=== PATIENT | female | born 2000 | race Caucasian/White ===

== ENCOUNTER 2022-05-07 13:17 | Outpatient (CLI) | payer BC, SELFPAY | END 2022-05-07 13:18 | disposition home or self-care (01) | LOC: AMB 05-09 10:27 | PROVIDERS: PCP Family Medicine; Visit Provider Emergency Medicine | DX: T14.91XA Suicide attempt, initial encounter (principal); S91.012A Laceration without foreign body, left ankle, initial encounter; X78.1XXA Intentional self-harm by knife, initial encounter; Y92.009 Unspecified place in unspecified non-institutional (private) residence as the place of occurrence of the external cause | CPT/HCPCS: A0425; A0427 ==

== ENCOUNTER 2022-05-07 13:55 | Emergency (ER) | payer BC, SELFPAY ==
[2022-05-07] VITALS (17 sets, daily range): BP systolic 111–153; BP diastolic 67–92; PULSE 81–100; RESP 18; TEMP 36.8; O2SAT 96–100
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
[2022-05-07 14:24] LABS: Basophils Absolute Auto 0.04 K/uL (0.00-0.30); Basophils Percent Auto 0.5 % (0.0-3.0); Eosinophils Absolute Auto 0.31 K/uL (0.00-0.50); Eosinophils Percent Auto 3.7 % (0.0-7.0); Hematocrit 40.2 % (33.0-51.0); Hemoglobin* 13.6 gm/dL (12.0-16.0); Mean Corpuscular HGB Conc 34 gm/dL (32-36); Mean Corpuscular Hemoglobin 29 pg (26-34); Mean Corpuscular Volume 85 fL (80-100); Monocytes Percent Auto 12.6 % (0.0-11.0); Neutrophils Absolute Auto 4.92 K/uL (1.7-7.0); Neutrophils Percent Auto 59.2 % (42.0-72.0); Platelet Count* 425 K/uL (140-440); RDW Coefficient of Variation % 13.4 % (11.5-15.5); Red Blood Count 4.72 m/uL (4.00-5.20); White Blood Count* 8.32 K/uL (4.50-11.00)
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
[2022-05-07 14:26] LABS: Slide Review Reflex No
[2022-05-07 14:48] LABS: Albumin* 4.8 g/dL (3.3-5.0)
[2022-05-07 14:49] LABS: Chloride* 110 mmol/L (96-114); Potassium* 3.9 mmol/L (3.6-5.1); Sodium* 141 mmol/L (135-149)
[2022-05-07 14:51] LABS: Alkaline Phosphatase* 110 U/L (40-150); Aspartate Amino Transferase* 33 U/L (12-35); Bilirubin Direct* 0.3 mg/dL (0.0-0.5); Bilirubin Total* 0.8 mg/dL (0.1-1.5); Total Protein* 8.8 g/dL (6.0-8.3)
[2022-05-07 14:52] LABS: Alanine Aminotransferase* 22 U/L (4-35)
[2022-05-07 14:52] LABS: Carbon Dioxide* 16 mmol/L (20-32); Creatinine* 0.8 mg/dL (0.5-1.5); Estimated Glomerular Filt Rate 108 ml/min
[2022-05-07 14:53] LABS: Blood Urea Nitrogen* 15 mg/dL (5-24); Calcium* 9.7 mg/dL (8.4-10.6); Glucose* 107 mg/dL (60-115)
[2022-05-07 14:54] LABS: Ethanol* < 0.01 % (0.01-0.03); Salicylate* < 1.0 mg/dL (1.0-10)
[2022-05-07 14:54] LABS: Acetaminophen* < 10.0 ug/mL (10.0-30.0)
[2022-05-07 15:00] LABS: PCR FLU A Negative PCR FLU A (Negative); PCR FLU B Negative PCR FLU B (Negative); PCR RSV Negative PCR RSV (Negative)
[2022-05-07 15:04] LABS: SARS PCR* Negative SARS-CoV-2 (Negative)
--- NOTE | 2022-05-07 15:10 | ED.NURSE ---
Pt reporting extreme anxiety, is crying, yelling, and shaking. Pt requesting meds to help her calm down. notified.
[2022-05-07 15:25] LABS: Appearance Urine Cloudy (Clear); Bilirubin Urine 1+ (Negative); Blood Urine 3+ (Negative); Color Urine Yellow (Yellow); Glucose Urine Negative (Negative); Ketones Urine 1+ (Negative); Leukocyte Esterase Urine Negative (Negative); Nitrite Urine Negative (Negative); Protein Urine 2+ (Negative); Specific Gravity Urine >= 1.030 (1.000-1.030); Urobilinogen Urine 0.2 (0.2-1.0)
[2022-05-07] MEDS: LORazepam 1 MG TABLET PO (15:29)
[2022-05-07 15:32] LABS: Barbiturate Screen Urine Negative (Negative); Cocaine Screen Urine Negative (Negative); Methadone Screen Urine Negative (Negative); Methamphetamines Screen Urine Negative (Negative); Opiate Screen Urine Negative (Negative); Oxycodone Screen Urine Negative (Negative); Phencyclidine Screen Urine Negative (Negative); Tricyclic Antidepressant Urine Negative (Negative)
[2022-05-07 15:38] LABS: Thyroid Stimulating Hormone* 0.927 uIU/mL (0.270-4.20)
[2022-05-07 15:47] LABS: Amphetamine Screen Urine POSITIVE (Negative); Benzodiazepines Screen Urine POSITIVE (Negative); Cannabinoid Screen Urine POSITIVE (Negative)
--- NOTE | 2022-05-07 16:05 | ED.NURSE ---
Bacitracin applied to wound on pt's L anterior thigh. Wound bandaged with telfa, gauze, and kerlix roll.
[2022-05-07 16:06] LABS: Bacteria Urine Few; Squamous Epithelial Cell Urine Many (None-Few)
--- NOTE | 2022-05-07 17:15 | ED.NURSE ---
DEC assessment completed, pt finished eating a meal tray as well.
--- NOTE | 2022-05-07 18:38 | ED.NURSE ---
DEC safety plan reviewed by pt and pt's mother. Both agreeable to safety plan. Copy of safety plan provided to pt and pt's mother.
== END 2022-05-07 19:30 | disposition home or self-care (01) ==
PROVIDERS: Emergency Provider Family Medicine; PCP Family Medicine
DX: S71.112A Laceration without foreign body, left thigh, initial encounter (principal); X78.9XXA Intentional self-harm by unspecified sharp object, initial encounter; F41.9 Anxiety disorder, unspecified; F32.A Depression, unspecified
CPT/HCPCS: 12002; 36415; 80048; 80076; 80143; 80179; 80306; 81001; 82077; 84443; 85025; 87086; 87502; 87634; 87635; 94761; 99284; 99285; 99291; A9270; G0390

== ENCOUNTER 2022-12-09 11:55 | Outpatient (CLI) | payer BC, SELFPAY | END 2022-12-09 11:56 | disposition home or self-care (01) | LOC: NFLDREF 12-11 10:30 | PROVIDERS: PCP Family Medicine; Referring Provider Family Medicine; Visit Provider Physician Assistant | DX: Z11.3 Encounter for screening for infections with a predominantly sexual mode of transmission (principal) | CPT/HCPCS: 86592; 86703; 86803; 87340; 87491; 87591 ==

== ENCOUNTER 2023-02-14 10:38 | Emergency (ER) | payer BC, SELFPAY ==
[2023-02-14 11:03] VITALS: BP 121/74; PULSE 62; RESP 16; TEMP 36.6; O2SAT 99; BMI 23.8
[2023-02-14 11:22] LABS: Appearance Urine Clear (Clear); Bilirubin Urine Negative (Negative); Blood Urine 3+ (Negative); Color Urine Yellow (Yellow); Glucose Urine Negative (Negative); Ketones Urine Negative (Negative); Leukocyte Esterase Urine 1+ (Negative); Nitrite Urine Negative (Negative); Protein Urine 2+ (Negative); Specific Gravity Urine 1.015 (1.000-1.030); Urobilinogen Urine 0.2 (0.2-1.0)
[2023-02-14 11:37] LABS: Amorphous Sediment Urine Few; Bacteria Urine Moderate; RBC Urine 50-100 (0-2); Squamous Epithelial Cell Urine Few (None-Few)
[2023-02-14 11:38] LABS: WBC Clumps Urine Few
--- NOTE | 2023-02-14 11:41 | CRLHL7_ITS ---
For Patients: As a result of the Cures Act, medical imaging exams and procedure reports are released immediately into your electronic medical record. You may view this report before your referring provider. If you have questions, please contact your health care provider. INDICATION: Bilateral flank pain. UTI. Right lower quadrant pain. TECHNIQUE: CT abdomen and pelvis acquired with 64 mL Isovue 370 IV contrast. COMPARISON: CT abdomen/pelvis dated 05/19/2021. FINDINGS: Lower chest: No focal consolidation. Liver: No suspicious focal hepatic lesion. Gallbladder and bile ducts: Unremarkable. Pancreas: Unremarkable. Spleen: Unremarkable. Adrenal glands: Unremarkable. Kidneys: Kidneys enhance symmetrically, without hydronephrosis. There is mild periureteral inflammation along the proximal to mid right ureter. Retroperitoneum: No lymphadenopathy. Bowel and mesentery: Bowel is not obstructed. No significant ascites. No pneumoperitoneum. Normal appendix. Bladder: Mild pericystic inflammation. Reproductive organs: Corpus luteum cyst is noted within the right ovary. Pelvic lymph nodes: No lymphadenopathy. Vessels: Unremarkable. Abdominal wall: No acute abdominal wall abnormality. Bones: No suspicious/aggressive focal osseous lesion. IMPRESSION: 1. Mild pericystic inflammation, consistent with cystitis. 2. Mild right periureteral inflammation along the proximal to mid right ureter, concerning for ascending urinary tract infection. 3. Normal appendix. Please note that all CT scans at this facility use dose modulation, iterative reconstruction, and/or weight-based dosing when appropriate to reduce radiation dose to as low as reasonably achievable. Dictated by Rupa Matt MD @ 02/14/2023 2:58:22 PM (Electronically Signed)
[2023-02-14 11:57] LABS: Ur HCG Qualitative* Negative (Negative)
--- NOTE | 2023-02-14 11:59 | ED_ITS ---
HPI - General Adult General Date Seen: 02/14/23 Chief complaint: Abdominal Pain Stated complaint: back/abominal pain Time Seen by Provider: 02/14/23 10:51 Source: patient Mode of arrival: ambulatory Limitations: no limitations History of Present Illness HPI narrative: Patient is a 22-year-old female presenting to the emergency department for bilateral flank pain, lower abdominal pain and dysuria. She states symptoms started roughly 04:00 this morning. She states started in bilateral flanks and has since gone down to her bilateral lower abdomen with the right worse than left. She states she does not do any heavy lifting at work and cannot think of any heavy lifting or injuries to her back. Denies having symptoms like this before. Does not she was diagnosed with chlamydia a little over a month ago and has taken an antibiotic for it. She was asymptomatic at the time was tested because someone else tested positive. She did not have any dysuria associated with it. Denies fevers, chills, chest pain, shortness of breath, headache, vision changes, weakness, numbness, diarrhea, constipation. No other concerns at this time Related Data Home Medications Medication Instructions Recorded Confirmed epinephrine 0.3 mg/0.3 mL 0.3 ml IM ONCE PRN 03/15/22 01/28/23 injection, auto-injector fluoxetine 20 mg capsule 20 mg PO DAILY 03/15/22 02/14/23 trazodone 50 mg tablet 50 mg PO .Bedtime 03/15/22 02/14/23 aripiprazole 2 mg tablet (Abilify) 2 mg PO QHS 05/14/22 02/14/23 Previous Rx's Medication Instructions Recorded norgestimate-ethinyl estradiol See Rx Instructions .Route 04/21/22 0.18 mg/0.215mg/0.25mg-35 .COMPLEX #84 tabs mcg(28)tablet (Tri-Sprintec (28)) lorazepam 1 mg tablet 1 mg PO QHS PRN anxiety #30 tabs 01/14/23 azithromycin 250 mg tablet See Rx Instructions PO .COMPLEX #6 01/28/23 (Zithromax Z-Ehsan) tabs ciprofloxacin HCl 500 mg tablet 500 mg PO BID #14 tabs 02/14/23 (Cipro) ketorolac 10 mg tablet 10 mg PO TID 5 days #15 tabs 02/14/23 ondansetron 4 mg disintegrating 4 mg PO Q6H #20 tabs 02/14/23 tablet oxycodone 5 mg tablet 5 mg PO Q6H PRN pain #6 tabs 02/14/23 Allergies Allergy/AdvReac Type Severity Reaction Status Date / Time umberto Allergy Severe Anaphylaxis Verified 01/28/23 18:12 montelukast Allergy Unknown Verified 01/28/23 18:12 Penicillins Allergy Unknown Verified 01/28/23 18:12 chili powder Allergy Severe Anaphylaxis Uncoded 01/28/23 18:12 Guinea pig epithelium Allergy Intermediate watery Uncoded 01/28/23 18:12 eyes, rash Cat hair extract Allergy Unknown Uncoded 01/28/23 18:12 Review of Systems Status of ROS: Reports: 10 or more systems reviewed and unremarkable except as noted in History and below [facility] Surgical History History of foot surgery ?Z98.890 - Other specified postprocedural states (ICD-10) History of thymectomy ?Z90.89 - Acquired absence of other organs (ICD-10) Family History Father Depression Sister Depression Social History Narrative: Works at [employer] in [place]. has zoroastrianism belief- very strong spirituality for Nondenominational in family. attends [employer] [facility] [employer] Smoking Status: Current every day smoker Do you use any of these nicotine containing products: Vaping Products Second hand tobacco smoke exposure: No How often do you have a drink containing alcohol: never AUDIT-C Alcohol total score: 0 Non-prescribed substance use: marijuana (any form), amphetamines/methamphetamines and other Non-prescribed substance use details: Mushrooms and Acid Exam Narrative: Exam Narrative: Const: Well-nourished, Well-developed, in mild distress Eyes: PERRL, no conjunctival injection, and symmetrical lids HENT: Atraumatic external nose and ears. Moist mucous membranes. Neck: Symmetric, trachea midline, No thyromegaly. CVS: RRR, No murmurs or gallops. Peripheral pulses 2+ and equal in all extremities RESP: Unlabored respiratory effort. Clear to auscultation bilaterally. GI: Diffuse lower abdominal tenderness, Nondistended, No rebound or guarding. MSK:Extremities w/o deformity, Normal Active ROM, bilateral paraspinal tenderness to palpation Skin: Warm, Dry. No rashes or lesions. Neuro: Normal Muscle tone, No focal neurological deficits. Psych: Awake, Alert, & Oriented x3. Appropriate mood and affect. Const: Vital Signs, click to edit/add: Vital Signs - 24 hr 02/14/23 11:03 Temperature 97.8 F Pulse Rate [Pulse Oximeter] 62 Respiratory Rate 16 [facility] 121/74 Pulse Oximetry 99 Oxygen Delivery Me thod Room Air Course Vital Signs Vital signs: Initial Vital Signs Temperature 97.8 F 02/14/23 11:03 Temperature Source Temporal Artery Scan 02/14/23 11:03 Pulse Rate 62 02/14/23 11:03 Respiratory Rate 16 02/14/23 11:03 Blood Pressure 121/74 02/14/23 11:03 Blood Pressure Mean 89 02/14/23 11:03 Blood Pressure Position Sitting 02/14/23 11:03 Pulse Oximetry 99 02/14/23 11:03 Oxygen Delivery Method Room Air 02/14/23 11:03 Vital Signs Temperature 97.8 F 02/14/23 11:03 Pulse Rate 62 02/14/23 11:03 Respiratory Rate 16 02/14/23 11:03 Blood Pressure 121/74 02/14/23 11:03 Pulse Oximetry 99 02/14/23 11:03 Oxygen Delivery Method Room Air 02/14/23 11:03 Temperature 97.8 F 02/14/23 11:03 Pulse Rate 62 02/14/23 11:03 Respiratory Rate 16 02/14/23 11:03 Blood Pressure 121/74 02/14/23 11:03 Pulse Oximetry 99 02/14/23 11:03 Oxygen Delivery Method Room Air 02/14/23 11:03 Medical Decision Making MDM Narrative Medical decision making narrative: Patient is a 22-year-old female presenting emergency department for multiple complaints. Start off with flank pain and dysuria and is not having lower abdominal pain. This could all be related to urinary tract infection. She has no history of nephrolithiasis but there is concern for kidney stones although this seems unlikely since it is bilateral. That she is also having bilateral lower abdominal pain and is painful McBurney's point mood do CT scan with IV contrast. This will help check for stones in appendicitis or any other acute abnormality. Urinalysis, CBC and CMP were also ordered. Toradol was given for pain. Patient is feeling much better after the Toradol. Cbc and CMP shows no concerning abnormalities. Urinalysis does show urinary tract infection. CT scan was done. It returned showing concerns of an ascending urinary tract infection with inflammation seen in the right ureters. Was she is not have pyelonephritis at this time we will treat as pyelonephritis since that is ascending. She will be started on ciprofloxacin 500 mg b.i.d. for 7 days. She will be given Toradol for pain. As backup will give her a few pills of oxycodone. She is agreeable to this plan. Lab Data Labs: Lab Results 02/14/23 02/14/23 02/14/23 Range/Units 11:18 11:42 12:00 WBC 11.85 H (4.50-11.00) K/uL RBC 4.47 (4.00-5.20) m/uL Hgb 12.6 (12.0-16.0) gm/dL Hct 39.1 (33.0-51.0) % MCV 88 (80-100) fL MCH 28 (26-34) pg MCHC 32 (32-36) gm/dL RDW Coeff of Zackary 13.7 (11.5-15.5) % Plt Count 444 H (140-440) K/uL Neut % (Auto) 76.9 H (42.0-72.0) % Lymph % (Auto) 13.5 L (20-44) % [place] % (Auto) 7.8 (0.0-11.0) % Eos % (Auto) 1.4 (0.0-7.0) % Baso % (Auto) 0.3 (0.0-3.0) % Neut # (Auto) 9.10 H (1.7-7.0) K/uL Lymph # (Auto) 1.60 (0.90-2.90) K/uL [place] # (Auto) 0.90 (0.00-0.90) K/UL Eos # (Auto) 0.20 (0.00-0.50) K/uL Baso # (Auto) 0.00 (0.00-0.30) K/uL Abs Immat Gran (auto) 0.00 (0.00-0.30) K/uL Imm/Tot Granulo (auto) 0.1 % Sodium 136 (135-149) mmol/L Potassium 3.9 (3.6-5.1) mmol/L Chloride 97 (96-114) mmol/L Carbon Dioxide 25 (20-32) mmol/L Anion Gap 14 (7-15) mEq/L BUN 9 (5-24) mg/dL Creatinine 0.6 (0.5-1.5) mg/dL Estimated Creat Clear 118.29 Estimated GFR 132 ml/min Glucose 108 (60-115) mg/dL Calcium 9.2 (8.4-10.6) mg/dL Total Bilirubin 0.6 (0.1-1.5) mg/dL AST 35 (12-35) U/L ALT 18 (4-35) U/L Alkaline Phosphatase 104 (40-150) U/L Total Protein 8.3 (6.0-8.3) g/dL Albumin 4.6 (3.3-5.0) g/dL HCG, Quant Cancelled Urine Color Yellow (Yellow) Urine Appearance Clear (Clear) Urine pH 8.0 (5.0-8.5) Ur Specific [place] 1.015 (1.000-1.030) Urine Protein 2+ A (Negative) Urine Glucose (UA) Negative (Negative) Urine Ketones Negative (Negative) Urine Blood 3+ A (Negative) Urine Nitrite Negative (Negative) Urine Bilirubin Negative (Negative) Urine Urobilinogen 0.2 (0.2-1.0) Ur Leukocyte Esterase 1+ A (Negative) Urine RBC 50-100 A (0-2) Urine WBC 10-25 A (0-5) Urine WBC Clumps Few A (None) Ur Squamous Epith Cells Few (None-Few) Amorphous Sediment Few A (None) Urine Bacteria Moderate A (None) Urine HCG, Qual Negative (Negative) Lab Acknowledgement Test Added Imaging Data CT scan abdomen and pelvis: Radiologist's impression: IMPRESSION: 1. Mild pericystic inflammation, consistent with cystitis. 2. Mild right periureteral inflammation along the proximal to mid right ureter, concerning for ascending urinary tract infection. 3. Normal appendix. Please note that all CT scans at this facility use dose modulation, iterative reconstruction, and/or weight-based dosing when appropriate to reduce radiation dose to as low as reasonably achievable. Dictated by Rupa Matt MD @ 02/14/2023 2:58:22 PM Discharge Plan Discharge Clinical Impression: Ureteritis, Cystitis Patient Disposition: Home, Self-Care Condition: Improved Instructions: Urinary Tract Infection in Women (DC) Additional Instructions: If symptoms are not improving in the next 3-4 days follow-up with your primary care provider. Patient says the pain becomes intolerable or she is unable to keep down any medications return to the emergency department for possible admission. She is not currently have infection of her kidneys but it is moving up her urinary tract. If she is using the Toradol did not take Advil or ibuprofen with that. Use the oxycodone as a last resort. Prescriptions: New ciprofloxacin HCl [Cipro] 500 mg tablet 500 mg PO BID Qty: 14 0RF ketorolac 10 mg tablet 10 mg PO TID 5 Days Qty: 15 0RF oxycodone 5 mg tablet 5 mg PO Q6H PRN (Reason: pain) Qty: 6 0RF ondansetron 4 mg tablet,disintegrating 4 mg PO Q6H Qty: 20 0RF No Action fluoxetine 20 mg capsule 20 mg PO DAILY trazodone 50 mg tablet 50 mg PO .Bedtime epinephrine 0.3 mg/0.3 mL auto-injector 0.3 ml IM ONCE PRN aripiprazole [Abilify] 2 mg tablet 2 mg PO QHS azithromycin [Zithromax Z-Ehsan] 250 mg tablet See Rx Instructions PO .COMPLEX Qty: 6 0RF Rx Instructions: For 250 mg dose pack: take 500 mg today (day 1), then 250 mg for 4 days (days 2-5) PO norgestimate-ethinyl estradiol [Tri-Sprintec (28)] 0.18/0.215/0.25 mg-35 mcg (28) tablet See Rx Instructions .ROUTE .COMPLEX Qty: 84 3RF Dose Instruction: Take 1 tablet by mouth once daily Rx Instructions: Take 1 tablet by mouth once daily lorazepam 1 mg tablet 1 mg PO QHS PRN (Reason: anxiety) Qty: 30 2RF Follow Up/Referrals: Brock Royal MD [Primary Care Provider] - Stand Alone Forms: [employer] Info Instructions
[2023-02-14] MEDS: KETOROLAC 15 MG/ML inj IVP (12:07)
[2023-02-14 12:13] LABS: Basophils Percent Auto 0.3 % (0.0-3.0); Eosinophils Percent Auto 1.4 % (0.0-7.0); Hematocrit 39.1 % (33.0-51.0); Hemoglobin* 12.6 gm/dL (12.0-16.0); Immature Granulocytes Pct Auto 0.1 %; Lymphocytes Percent Auto 13.5 % (20-44); Mean Corpuscular HGB Conc 32 gm/dL (32-36); Mean Corpuscular Hemoglobin 28 pg (26-34); Mean Corpuscular Volume 88 fL (80-100); Monocytes Percent Auto 7.8 % (0.0-11.0); Neutrophils Percent Auto 76.9 % (42.0-72.0); Platelet Count* 444 K/uL (140-440); RDW Coefficient of Variation % 13.7 % (11.5-15.5); Red Blood Count 4.47 m/uL (4.00-5.20); White Blood Count* 11.85 K/uL (4.50-11.00)
[2023-02-14 12:19] LABS: Slide Review Reflex No
[2023-02-14 12:23] LABS: Albumin* 4.6 g/dL (3.3-5.0); Chloride* 97 mmol/L (96-114); Potassium* 3.9 mmol/L (3.6-5.1); Sodium* 136 mmol/L (135-149)
[2023-02-14 12:26] LABS: Alanine Aminotransferase* 18 U/L (4-35); Alkaline Phosphatase* 104 U/L (40-150); Anion Gap 14 mEq/L (7-15); Aspartate Amino Transferase* 35 U/L (12-35); Bilirubin Total* 0.6 mg/dL (0.1-1.5); Blood Urea Nitrogen* 9 mg/dL (5-24); Carbon Dioxide* 25 mmol/L (20-32); Creatinine* 0.6 mg/dL (0.5-1.5); Est. Creatinine Clearance* 118.29; Estimated Glomerular Filt Rate 132 ml/min; Glucose* 108 mg/dL (60-115); Total Protein* 8.3 g/dL (6.0-8.3)
[2023-02-14 12:27] LABS: Calcium* 9.2 mg/dL (8.4-10.6)
[2023-02-14 15:20] VITALS: BP 102/73; PULSE 75; RESP 16; O2SAT 98
--- NOTE | 2023-02-14 18:16 | ED.NURSE ---
Pt mom called in after discharge stating that the pharmacy did not have their Tramadol rx. Steel Shot Header Operator confirmed if they were asking about the Toradal rx. Pt's mother stated yes. Steel Shot Header Operator called the pharmacy to confirm, they did not receive the rx. Spoke with pharmacist and got rx called in. Called pt's mom back to notify that it had been resolved. No further questions or concerns at this time.
== END 2023-02-14 15:28 | disposition home or self-care (01) ==
PROVIDERS: Emergency Provider Student in an Organized Health Care Education/Training Program; PCP Family Medicine
DX: N30.00 Acute cystitis without hematuria (principal); N28.89 Other specified disorders of kidney and ureter
CPT/HCPCS: 36415; 74177; 80053; 81001; 81025; 84702; 85025; 87086; 87186; 96374; 99283; 99284; J1885; Q9967

== ENCOUNTER 2023-05-14 16:16 | Outpatient (CLI) | payer BC, SELFPAY ==
[2023-05-15 00:05] LABS: Chlamydia DNA Amplified* Not Detected (No Detected); GC DNA Amplified* Not Detected (No Detected)
== END 2023-05-14 16:17 | disposition home or self-care (01) ==
LOC: NFLDUCREF 16:17
PROVIDERS: PCP Family Medicine; Visit Provider Nurse Practitioner Family
DX: R10.2 Pelvic and perineal pain (principal); R30.0 Dysuria
CPT/HCPCS: 87491; 87591

== ENCOUNTER 2023-08-28 14:53 | Outpatient (CLI) | payer BC, SELFPAY | END 2023-08-28 14:54 | disposition home or self-care (01) | LOC: NFLDREF 08-29 06:06 | PROVIDERS: PCP Family Medicine; Referring Provider Family Medicine; Visit Provider Nurse Practitioner Family | DX: R30.0 Dysuria (principal); N89.8 Other specified noninflammatory disorders of vagina; R21 Rash and other nonspecific skin eruption; B37.31 Acute candidiasis of vulva and vagina | CPT/HCPCS: 87086 ==

== ENCOUNTER 2024-03-25 13:51 | Outpatient (CLI) | payer BC, SELFPAY | END 2024-03-25 13:52 | disposition home or self-care (01) | PROVIDERS: PCP Nurse Practitioner Family; Visit Provider Nurse Practitioner Family | DX: R53.83 Other fatigue (principal); Z13.220 Encounter for screening for lipoid disorders | CPT/HCPCS: 80053; 80061; 84443 ==

== ENCOUNTER 2024-12-09 19:35 | Emergency (ER) | payer BC, SELFPAY ==
[2024-12-09 19:48] VITALS: BP 177/74; PULSE 80; RESP 16; TEMP 36.6; O2SAT 97; BMI 32.3
--- NOTE | 2024-12-09 20:58 | ED_ITS ---
HPI - General Adult General Date Seen: 12/09/24 Chief complaint: Extremity Pain/Injury, Lower Stated complaint: R hip severe pain, urgent care sent her. Time Seen by Provider: 12/09/24 20:58 History of Present Illness HPI narrative: 24-year-old female presenting to the ER [facility] with her mother for evaluation of pain involving her right hip. She has been having pain for about a week. She says she 1st noticed it when after she woke up from a nap about a week ago. She had her leg was in a funny position after the nap with her hip abducted and externally rotated. She thought she might have dislocated her hip and her sleep. No known injury. Unclear why she thought it was dislocated. She did not feel it obviously at a plays and never felt a clunk of the hip relocating. Ever since then she has been having pain. Pain is located deep in the hip and s ometimes in the buttock and occasionally on the lateral side of the hip. She also notes that sometimes she gets some pain radiating down her thigh all the way down to her right lateral malleolus. She is not having any back pain. No numbness or weakness in her leg. No left leg symptoms. Normal bladder and bowel function. No fever. No fall or injury. She has no history of hip surgery or other hip problems. She had her mother are frustrated because she went to the urgent care today and they felt like she was dismissed and ?pad on the head. ?. She says that they told him to follow up physical therapy. She has already been seeing her chiropractor and taking ibuprofen and Tylenol but it is helping. She is having lot of pain when she tries to move her hip and walk. I Related Data Home Medications ?Medication ?Instructions ?Recorded ?Confirmed propranolol 20 mg tablet 20 mg PO BID 05/30/23 bupropion HCl 200 mg tablet,12 hr 200 mg PO QAM 12/09/24 sustained-release gabapentin 800 mg tablet 800 mg PO QPM 07/22/2412/09 aripiprazole 30 mg tablet 30 mg PO QPM 07/28/24 ketoconazole 2 % topical cream applic topical BID 07/1312/09/24 topiramate 50 mg tablet 50 mg PO QPM 12/09/24 Previous Rx's ?Medication ?Instructions ?Recorded albuterol sulfate 90 mcg/actuation 2 puff inhalation Q 4-6H PRN 10/14/23 aerosol inhaler shortness of breath or wheez ing #8.5 grams norgestimate-ethinyl estradiol See Rx Instructions .[place] 03/31/24 0.18mg/0.215mg/0.25mg-0.035mg(28)tablet .COMPLEX #84 t abs (Tri-Sprintec (28)) prednisone 20 mg tablet 20 mg PO BID #10 tabs Allergies Allergy/AdvReac Type Severity Reaction Status Date / Time umberto Allergy Severe Anaphylaxis Verified 12/09/24 09:29 montelukast Allergy Unknown Verified 12/09/24 09:29 Penicillins Allergy Unknown Verified 12/09/24 09:29 cat dander Allergy Verified 12/09/24 09:29 chili powder Allergy Severe Anaphylaxis Uncoded 12/09/24 09:29 Guinea pig epithelium Allergy Intermediate watery Uncoded 12/09/24 09:29 eyes, rash PFSH PFSH Medical History Borderline personality disorder ?F60.3 - Borderline personality disorder (ICD-10) Surgical History History of foot surgery ?Z98.890 - Other specified postprocedural states (ICD-10) History of thymectomy ?Z90.89 - Acquired absence of other organs (ICD-10) Family History Father Depression Sister Depression Social History Narrative: Works at [employer] in [place]. has shinto belief- very strong spirituality for Taoist in family. attends [employer] What is your current living situation?: I presently have a place to live Problems where you live: no known problems In the past 12 months, utilities in danger of being shut off: no In past 12 months, lack of transportation kept you from medical appts, meetings, work, or getting things needed for daily living: no In the past 12 mos, have been you worried that your food would run out before you had money to buy more?: never true In the past 12 mos, the food you bought just didn't last and you didn't have money to buy more?: never true Smoking Status: Current every day smoker Do you use any of these nicotine containing products: Vaping Products Second hand tobacco smoke exposure: No How often do you have a drink containing alcohol: never AUDIT-C Alcohol total score: 0 Non-prescribed substance use: marijuana (any form), amphetamines/methamphetamines and other Non-prescribed substance use details: Mushrooms and Acid How often does anyone, including family, friends and others, physically hurt you : rarely How often does anyone, including family, friends and others, insult or talk down to you: frequently How often does anyone, including family, friends and others, threaten you with harm: rarely How often does anyone, including family, friends and others, scream or curse at you: frequently Health Related Social Needs: Other personal risk factors, not elsewhere classified (Z91.89) Exam Narrative: Exam Narrative: Constitutional: Appears well-developed and well-nourished. Alert. Conversant. Non toxic. HENT: Head: Atraumatic. Nose: Nose normal. Mouth/Throat: Oral mucosa is clear and moist. no trismus. Eyes: Conjunctivae normal. EOM normal. Pupils equal, round, and reactive to light. No scleral icterus. Neck: Normal range of motion. Neck supple. No tracheal deviation present. Cardiovascular: Normal rate, regular rhythm. No gallop. No friction rub. No murmur heard. Symmetric radial artery pulses Pulmonary/Chest: Effort normal. No stridor. No respiratory distress. No wheezes. No rales. No rhonchi . No tenderness. Abdominal: Soft.No distension. No mass. No tenderness. No rebound. No guarding. Musculoskeletal: No L-spine tenderness. Pelvis is stable. She is mildly tender over the right SI joint and right buttock. No bruising. No rash. RUE: Normal range of motion. No tenderness. No deformity LUE: Normal range of motion. No tenderness. No deformity RLE: Range of motion is limited to about 90? of flexion at the hip. She has pain with hip abduction and internal/external rotation. There is no warmth or bruising or redness around the hip. No crepitus. No rotational deformity. No foreshortening. Quadriceps, hamstring, lateral femur are nontender. Normal knee. Normal tibia/fibula. Normal calf. Normal Achilles. Normal ankle and foot. LLE: Normal range of motion. No edema. No tenderness. No deformity Lymph: No inguinal adenopathy. Neurological: Alert and oriented to person, place, and time. Normal strength. CN II-VII intact. No sensory deficit. GCS eye subscore is 4. GCS verbal subscore is 5. GCS motor subscore is 6. Normal coordination Sensory: Normal light touch sensation bilaterally on the anteromedial thigh (L3), medial malleolus (L4), dorsal first web space (L5), lateral malleolus (S1). Strength: 5/5 strength hip flexors (L3) on the rig ht and left 5/5 strength in the quadriceps (L4) on t he right and left 5/5 strength in the tibialis anterior 5/5 strength in the EHL (L5) on the righ t and left 5/5 strength in the gastrocnemius (S1) o n the right and left 5/5 strength in the hamstring on the rig ht and left DTRs: symmetric in the patella (2/4) and in the achilles tendons. Negative straight leg raise bilaterally. Skin: Skin is warm and dry. No rash noted. No pallor. Normal capillary refill. Psychiatric: Normal mood. Initially tearful and anxious. After history and physical in discussion she is calmer. Polite. Const: Vital Signs, click to edit/add: Vital Signs - 24 hr 12/09/24 19:48 Temperature 97.9 F Pulse Rate [Pulse Oximeter] 80 Respiratory Rate 16 Blood Pressure [Ri ght Upper Arm] 177/74 H Pulse Oximetry 97 Oxygen Delivery Me thod Room Air Course Vital Signs Vital signs: Initial Vital Signs Temperature 97.9 F 12/09/24 19:48 Temperature Source Temporal Artery Scan 12/09/24 19:48 Pulse Rate 80 12/09/24 19:48 Respiratory Rate 16 12/09/24 19:48 Blood Pressure 177/74 H 12/09/24 19:48 Blood Pressure Mean 108 H 12/09/24 19:48 Blood Pressure Position Sitting 12/09/24 19:48 Pulse Oximetry 97 12/09/24 19:48 Oxygen Delivery Method Room Air 12/09/24 19:48 Vital Signs Temperature 97.9 F 12/09/24 19:48 Pulse Rate 80 12/09/24 19:48 Respiratory Rate 16 12/09/24 19:48 Blood Pressure 177/74 H 12/09/24 19:48 Pulse Oximetry 97 12/09/24 19:48 Oxygen Delivery Method Room Air 12/09/24 19:48 Temperature 97.9 F 12/09/24 19:48 Pulse Rate 80 12/09/24 19:48 Respiratory Rate 16 12/09/24 19:48 Blood Pressure 177/74 H 12/09/24 19:48 Pulse Oximetry 97 12/09/24 19:48 Oxygen Delivery Method Room Air 12/09/24 19:48 Medications Administered Medications: Generic Name Dose Route Start Last Admin Trade Name Freq PRN Reason Stop Dose Admin Hydrocodone Bitart/Acetaminophen 1 tab 12/09/24 21:21 12/09/24 21:37 Hydrocodone-Acetamin 5-325 Mg 1 Tab PO 12/09/24 21:22 1 tab ONCE ONE Administration Medical Decision Making MDM Narrative Medical decision making narrative: 24-year-old female presenting to the ER [facility] with her mother for evaluation of pain involving her right hip (mostly) but also sometimes pain radiating down her right leg all the way down to her right lateral malleolus. She has no trauma but does recall this started about a week ago when she has woke up from a nap with her right hip in a funny position with the hip abducted and externally rotated. She initially thought she might have dislocated her better sleep, but based on clinical history I think that is unlikely. We did obtain x-rays of her hip there is no evidence for any fracture, dislocation of the femur, acetabulum, or bony pelvis. She has no recent fall. Discussed with the patient and mother the differential also includes soft tissue injury such as muscle sprain or strain, labral tear, bursitis, cartilaginous injury around the hip, ligamentous injury. Also consider possible sciatica with the pain that sometimes radiates down to her ankle. She is not having any symptoms of leg weakness or numbness. She has no focal neurologic deficit on exam. At this point I do not think she needs transfer to a different hospital for emergent MRI of her L-spine. Would recommend close outpatient follow-up with PCP or with Orthopedics for re- evaluation. She has been taking [id number] medications for her hip but finds them to be effective. I agreed to give her a short prescription for [place]. Discussed opiate precautions in detail with the patient and her mother. Precautions for return to the ER reviewed. Prescription for [place] through [facility]-12 tablets. Imaging Data XR R hip and pelvis: Attestation: I have reviewed the pertinent imaging results. My impression: no fracture Radiologist's impression: IMPRESSION: 1. No acute osseous injuries or abnormalities are noted. Discharge Plan Discharge Clinical Impression: Acute pain of right hip Patient Disposition: Home, Self-Care Condition: Stable Instructions: Hip Pain (ED) Additional Instructions: As we discussed, please come back to the ER right away if you have worsening or severe pain, numbness we consider leg, fever, trouble with bladder function or bowel function, or if you have any other concerns. Please follow-up with your regular doctor or with the [facility] within 1-3 days. To make an appointment with the orthopedic clinic you can call [phone]. Use caution with prescription pain medications because they can cause dizziness, drowsiness, slow reflexes, constipation, and can be addictive. Prescriptions: No Action albuterol sulfate 90 mcg/actuation HFA aerosol inhaler 2 puff inhalation Q4-6H PRN (Reason: shortness of breath or wheezing) Qty: 8.5 0RF topiramate 50 mg tablet 50 mg PO QPM propranolol 20 mg tablet 20 mg PO BID gabapentin 800 mg tablet 800 mg PO QPM bupropion HCl 200 mg tablet sustained-release 12 hr 200 mg PO QAM ketoconazole 2 % cream topical BID aripiprazole 30 mg tablet 30 mg PO QPM norgestimate-ethinyl estradiol [Tri-Sprintec (28)] 0.18/0.215/0.25 mg-35 mcg (28) tablet See Rx Instructions .ROUTE .COMPLEX Qty: 84 3RF Dose Instruction: Take 1 tablet by mouth once daily Rx Instructions: Take 1 tablet by mouth once daily prednisone 20 mg tablet 20 mg PO BID Qty: 10 0RF Follow Up/Referrals: Brock Royal MD [Primary Care Provider, Family Practice] Stand Alone Forms: [employer] Info Instructions
--- NOTE | 2024-12-09 21:21 | CRLHL7_ITS ---
For Patients: As a result of the Cures Act, medical imaging exams and procedure reports are released immediately into your electronic medical record. You may view this report before your referring provider. If you have questions, please contact your health care provider. INDICATION: Right hip pain, right hip and buttock pain TECHNIQUE: Pelvis radiograph, Hip radiograph 3 views right COMPARISON: 07/22/2024 FINDINGS: Bone: No acute fractures or aggressive bone lesions are identified. Joint: The hip joints are unremarkable. The visualized sacroiliac joints are unremarkable in appearance. The pubic symphysis is normal in appearance. Soft tissue: Unremarkable. No radiopaque foreign bodies are seen. IMPRESSION: 1. No acute osseous injuries or abnormalities are noted. Dictated by: Darnell Cheney MD @ 12/09/2024 21:56:43 (Electronically Signed)
--- OUTSIDE RECORDS SUMMARY | 2024-12-09 21:27 | XMS_ITS | Clinical Summary ---
Author Organization -[facility] Address [address] [place] [id number] Care Team Providers Care Supervisor Weaving Name Role Phone Cory Juan MD Primary Care Provider [phone] Allergies Active Allergy Reactions Criticality Noted Date Comments Penicillins Other - Describe In Comment Field 05/02/2015 Pt says it makes her pupils huge Medications cetirizine (ZYRTEC) 10 mg tablet Take 10 mg by mouth once daily. Active FLUoxetine (PROZAC) 20 mg capsule 1 Active durable medical equipment (DME)Indication s:Follow-up examination after orthopedic surgery AIR SELECT, SHORT, MEDIUM, REF: 01ES-M 1 Each 1 Active lamoTRIgine (LAMICTAL) 25 mg tablet TAKE 1 TABLET BY MOUTH ONCE DAILY FOR 14 DAYS THEN TAKE 1 TABLET BY MOUTH TWICE DAILY. 1 Active prazosin (MINIPRESS) 1 mg capsule Take 1 Capsule (1 mg) by mouth 3 times daily. 0 1 Active lamoTRIgine (LAMICTAL) 150 mg tablet Take 150 mg by mouth once daily. 1 Active HYDROcodone-francisco j taminophen (NORCO) 5-325 mg per tabletIndicatio ns:Foot pain, right,Bunion of right foot,Hallux valgus, right,Tailor's bunionette, right Take 1 Tablet by mouth every 4 hours if needed for Pain. Max acetaminophen dose: 4000 mg in 24 hrs. 10 Tablet 2 Active traZODone (DESYREL) 100 mg tablet 0.5 Tablets (50 mg) at bedtime if needed for Sleep. 0 2 Active hydrOXYzine pamoate (VISTARIL) 25 mg capsule Take 1 Capsule by mouth once daily if needed. 2 Active LORazepam (ATIVAN) 1 mg tablet Take 1 Tablet by mouth one time if needed. 2 Active Active Problems Problem Noted Date Diagnosed Date Major depressive disorder with single episode Social History Tobacco Use Types Packs/Day Years Used Date Smoking Tobacco: Never Smokeless Tobacco: Never Tobacco Cessation:Counseling Given: Yes Alcohol Use Standard Drinks/Week Comments No 0 (1 standard drink = 0.6 oz pur e alcohol) Comments No Sex and Gender Information Value Date Recorded Sex Assigned at Not on file Legal Sex Female 5:51 AM INTELLIGENCE ENGINEER Gender Identity Not on file Sexual Orientation Not on file Obstetrics History Last Filed Vital Signs Vital Sign Reading Time Taken Comments Blood Pressure 122/71 05/23/2021 1:10 PM INTELLIGENCE ENGINEER tow er Pulse 63 05/23/2021 1:10 PM INTELLIGENCE ENGINEER Temperature 36.8 C (98.2 F) 04/29/2018 12:43 AM INTELLIGENCE ENGINEER Respiratory Rate 18 04/29/2018 12:43 AM INTELLIGENCE ENGINEER Oxygen Saturation 99% 05/23/2021 1:10 PM INTELLIGENCE ENGINEER Inhaled Oxygen Concentration - - Weight 59.4 kg (131 lb) 05/23/2021 1:10 PM INTELLIGENCE ENGINEER Height 154.9 cm (5' 1) 04/29/2018 12:43 AM INTELLIGENCE ENGINEER Body Mass Index - - Plan of Treatment Health Maintenance Due Date Last Done Comments Tetanus booster 2013 Depression screening for age 12+ 2014 HIV for age 15-65 2017 HPV series for age 9-26 (1 - 3-dose series) 2017 BMI (ht and wt on same day) for age 18+ 2020 Hepatitis C screening for ag e 18-79 2020 Hepatitis B series for 19+ ( 1 of 3 - 19+ 3-dose series) 2021 Pap test for age 21-65 2023 COVID-19 vaccine series ( season) 2023 Influenza Vaccine (#1) 2024 Pneumococcal series for age 6-49 Aged Out No longer eligible based on patient's age to complete [place] [id number] [facility] [place] [id number] Advance Directives * Full Code (Latest Code Status on File) Date Activated Date Inactivated Comments 05/03/2015 7:00 PM 05/08/2015 6:32 PM Care Teams Supervisor Weaving Relationship Specialty Start Date End Date Cory Juan MD [address] [place] [address] PCP - General 01/27/18
[2024-12-09] MEDS: HYDROCODONE-ACETAMIN 5-325 MG 1 TAB PO (21:37)
[2024-12-09 21:41] VITALS: PULSE 64; O2SAT 98
[2024-12-09 22:01] VITALS: BP 106/73; PULSE 64; RESP 16; O2SAT 98
== END 2024-12-09 22:25 | disposition home or self-care (01) ==
PROVIDERS: Emergency Provider Emergency Medicine; PCP Family Medicine
DX: M25.551 Pain in right hip (principal)
CPT/HCPCS: 73502; 99282; 99283; 99284; A9270

== ENCOUNTER 2025-02-17 14:46 | Outpatient (CLI) | payer BC, SELFPAY ==
[2025-02-17 23:13] LABS: Chlamydia DNA Amplified* NOT DETECTED (No Detected); GC DNA Amplified* NOT DETECTED (No Detected)
== END 2025-02-17 14:47 | disposition home or self-care (01) ==
LOC: NFLDUCREF 14:46
PROVIDERS: PCP Family Medicine; Visit Provider Physician Assistant
DX: N76.0 Acute vaginitis (principal); R30.0 Dysuria
CPT/HCPCS: 87491; 87591

== ENCOUNTER 2025-03-17 15:41 | Outpatient (CLI) | payer BC, SELFPAY | END 2025-03-17 15:42 | disposition home or self-care (01) | LOC: NFLDREF 03-24 02:12 | PROVIDERS: PCP Family Medicine; Referring Provider Family Medicine | DX: N30.01 Acute cystitis with hematuria (principal) | CPT/HCPCS: 87086 ==